=== PATIENT | female | born 1955 | race Caucasian/White ===

== ENCOUNTER 2017-10-29 09:53 | Inpatient (IN) | payer OTHER ==
[~2017-10-29] VITALS: Ht 157.5 cm; Wt 72.6 kg
[2017-10-29] MEDS ORDERED: CRESTOR10 MG PO (10:08)
[2017-11-13] MEDS ORDERED: DELZICOL400 M1 PO (12:01)
[2017-11-13] MEDS ORDERED: ZANTAC150 MG PO (12:01)
[2017-11-13] MEDS ORDERED: PROTONIX40 MG PO (12:01)
== END 2017-11-13 12:43 | disposition home or self-care (01) | DRG 387 ==
LOC: ER 09:53 → MEDI 17:37
PROC: BW21Y0Z Computerized Tomography (CT Scan) of Abdomen and Pelvis using Other Contrast, Unenhanced and Enhanced (ICD-10-PCS; 2017-10-29)
PROC: 02HV33Z Insertion of Infusion Device into Superior Vena Cava, Percutaneous Approach (ICD-10-PCS; 2017-10-30)
PROC: 3E0436Z Introduction of Nutritional Substance into Central Vein, Percutaneous Approach (ICD-10-PCS; 2017-10-31)
PROC: BW21Y0Z Computerized Tomography (CT Scan) of Abdomen and Pelvis using Other Contrast, Unenhanced and Enhanced (ICD-10-PCS; 2017-11-06)
PROC: 0DBP8ZX Excision of Rectum, Via Natural or Artificial Opening Endoscopic, Diagnostic (ICD-10-PCS; principal; 2017-11-12)
PROC: 0DBN8ZX Excision of Sigmoid Colon, Via Natural or Artificial Opening Endoscopic, Diagnostic (ICD-10-PCS; 2017-11-12)
DX: K51.511 Left sided colitis with rectal bleeding (principal); A04.72 Enterocolitis due to Clostridium difficile, not specified as recurrent

== ENCOUNTER 2022-12-16 09:30 | Inpatient (IN) | payer OTHER ==
[~2022-12-16] VITALS: Ht 157.5 cm; Wt 68.0 kg
[~2022-12-16 09:30] MED LIST: CRESTOR10 MG PO; DELZICOL400 M1 PO; PROTONIX40 MG PO; ZANTAC150 MG PO
[2022-12-16] MEDS ORDERED: CYMBALTA20 MG PO (11:02)
[2022-12-16] MEDS ORDERED: TOPROL XL25 M1 PO (11:02)
[2022-12-16] MEDS ORDERED: VISTARIL25 MG PO (11:03)
[2022-12-16] MEDS ORDERED: PEPCID AC10 MG PO (11:03)
[2022-12-18] MEDS ORDERED: LATANOPROST2.5 ML (16:35)
[2022-12-18] MEDS ORDERED: METOCLOPRAMIDE H5 MG (16:35)
[2022-12-18] MEDS ORDERED: OMEPRAZOLE20 MG (16:36)
[2022-12-21] MEDS ORDERED: HYOSCYAMINE0.125 M1 SL (08:05)
[2022-12-21] MEDS ORDERED: INTESTINEX680 M1 PO (08:05)
[2022-12-21] MEDS ORDERED: TRAM1TAB98 PO (08:05)
== END 2022-12-21 10:10 | disposition home or self-care (01) | DRG 331 ==
LOC: SURG 12-18 09:30 → SURH 12-18 09:35 → O/R 12-18 09:35 → SURG 12-18 13:15 → SURH 12-18 20:14
PROVIDERS: ADMIT Surgery; ATTEND Surgery
PROC: 0DBP4ZZ Excision of Rectum, Percutaneous Endoscopic Approach (ICD-10-PCS; 2022-12-18)
PROC: 0DJD8ZZ Inspection of Lower Intestinal Tract, Via Natural or Artificial Opening Endoscopic (ICD-10-PCS; 2022-12-18)
PROC: 3E0F7SF Introduction of Other Gas into Respiratory Tract, Via Natural or Artificial Opening (ICD-10-PCS; 2022-12-18)
PROC: 0DTN4ZZ Resection of Sigmoid Colon, Percutaneous Endoscopic Approach (ICD-10-PCS; principal; 2022-12-18 13:15)
DX: K57.32 Diverticulitis of large intestine without perforation or abscess without bleeding (principal); K66.0 Peritoneal adhesions (postprocedural) (postinfection); K52.9 Noninfective gastroenteritis and colitis, unspecified; K58.9 Irritable bowel syndrome, unspecified; R14.0 Abdominal distension (gaseous); R14.1 Gas pain